=== PATIENT | male | born 1990 | race American Indian/Alaskan Native ===

== ENCOUNTER 2018-10-05 10:37 | Emergency (ER) | payer SELFPAY ==
[2018-10-05 10:42] VITALS: BP 138/95
[2018-10-05] MEDS ORDERED: CLEOCIN PO ONE (11:58)
[2018-10-05] MEDS ORDERED: IBUPROFEN PO ONE (11:59)
--- NOTE | 2018-10-05 12:14 | Emergency Department Report ---
ED ENT HPI - General Chief complaint: Dental/Oral Stated complaint: MOUTH SWOLLEN Time Seen by Provider: 10/05/18 11:09 Source: patient Mode of arrival: Ambulatory Limitations: No Limitations - History of Present Illness Initial comments: The patient is a (28 year-old male who presents to ED complaining of pain in the right side of his mouth x 3 days . Patient states that the pain started 3 days ago and has increased in severity over the last 2-3 days. The pain is exacerbated by eating and opening of the mouth. Patient states the pain is alleviated initially with pain medication but comes back. Patient states that it radiates towards ear. Patient describes a as a throbbing, pressure-like sensation. Patient states otherwise well and has no other complaints. Patient has had no fevers and no chills. No chest pain, no shortness of breath. No abdominal pain. No shortness of breath or recent trauma to the face. MD complaint: tooth pain - Related Data Previous Rx's Medication Instructions Recorded Last Taken Type Clindamycin [Clindamycin CAP] 300 mg PO TID #21 capsule 10/05/18 Unknown Rx Ibuprofen [Motrin 800 MG tab] 800 mg PO TID #30 tablet 10/05/18 Unknown Rx Allergies Allergy/AdvReac Type Severity Reaction Status Date / Time No Known Allergies Allergy Unverified 10/05/18 10:38 ED Dental HPI - General Chief complaint: Dental/Oral Stated complaint: MOUTH SWOLLEN Time Seen by Provider: 10/05/18 11:09 Source: patient Mode of arrival: Ambulatory Limitations: No Limitations - Related Data Previous Rx's Medication Instructions Recorded Last Taken Type Clindamycin [Clindamycin CAP] 300 mg PO TID #21 capsule 10/05/18 Unknown Rx Ibuprofen [Motrin 800 MG tab] 800 mg PO TID #30 tablet 10/05/18 Unknown Rx Allergies Allergy/AdvReac Type Severity Reaction Status Date / Time No Known Allergies Allergy Unverified 10/05/18 10:38 ED Review of Systems ROS: Stated complaint: MOUTH SWOLLEN Other details as noted in HPI Comment: All other systems reviewed and negative ED Past Medical Hx - Past Medical History Previous Medical History?: No - Surgical History Past Surgical History?: No - Social History Smoking Status: Never Smoker Substance Use Type: None - Medications Home Medications: Home Medications Medication Instructions Recorded Confirmed Last Taken Type Clindamycin [Clindamycin CAP] 300 mg PO TID #21 capsule 10/05/18 Unknown Rx Ibuprofen [Motrin 800 MG tab] 800 mg PO TID #30 tablet 10/05/18 Unknown Rx ED Physical Exam - General Limitations: No Limitations General appearance: alert, in no apparent distress - Head Head exam: Present: atraumatic, normocephalic - Eye Eye exam: Present: normal appearance - ENT ENT exam: Present: mucous membranes moist, TM's normal bilaterally, normal external ear exam - Expanded ENT Exam Expanded Teeth exam: Present: dental caries, gingival enlargement Throat exam: Positive: other (right sided lower gingival enlargement #30, multiple dental caries visualize). Negative: tonsillar erythema, tonsillomegaly, L peritonsillar mass - Neck Neck exam: Present: normal inspection, full ROM. Absent: lymphadenopathy - Respiratory Respiratory exam: Present: normal lung sounds bilaterally. Absent: respiratory distress - Cardiovascular Cardiovascular Exam: Present: regular rate, normal rhythm. Absent: systolic murmur, diastolic murmur, rubs, gallop - GI/Abdominal GI/Abdominal exam: Present: soft, normal bowel sounds - Rectal Rectal exam: Present: deferred - Extremities Exam Extremities exam: Present: normal inspection - Back Exam Back exam: Present: normal inspection - Neurological Exam Neurological exam: Present: alert, oriented X3 - Psychiatric Psychiatric exam: Present: normal affect, normal mood - Skin Skin exam: Present: warm, dry, intact, normal color. Absent: rash ED Course Vital Signs 10/05/18 10:40 Temperature 99.0 F Pulse Rate 87 Respiratory 16 Rate Blood Pressure 138/95 O2 Sat by Pulse 100 Oximetry ED Medical Decision Making - Medical Decision Making 28-year-old male who presents with right sided Facial pain secondary to odontogenic caries ED course: Patient received clindamycin and Motrin in the ED Odontogenic infection versus ear infection. Based upon history and physical examination, pain is a result of an infection of tooth number 30 and that the pain Pt feels on the right side of his face and towards the ear is referred pain from this infectious process. Pt has no evidence of acute impending airway compromise. At this point, patient will be discharged home on some antibiotics and pain trial, he will do well with an outpatient course of antibiotics. Follow up with the Dental Clinic as referred Vital signs are normal patient is in no acute distress. Pt had an effect uneventful ED stay Critical care attestation.: If time is entered above; I have spent that time in minutes in the direct care o f this critically ill patient, excluding procedure time. ED Disposition Clinical Impression: Pain due to dental caries Disposition: TO HOME OR SELFCARE Is pt being admited?: No Does the pt Need Aspirin: No Condition: Stable Instructions: Toothache (ED), Dental Caries (ED) Additional Instructions: Make sure to follow up with the dental as discussed. Take all your medications as you've been prescribed. If you have any worsening symptoms or develop new symptoms please return to ED immediately. Prescriptions: Clindamycin [Clindamycin CAP] 300 mg PO TID #21 capsule Ibuprofen [Motrin 800 MG tab] 800 mg PO TID #30 tablet Referrals: PENG ENRIQUEZ MD [Primary Care Provider] - 3-5 Days [facility] [Outside] - 3-5 Days [facility] [Outside] - 3-5 Days Forms: Work/School Release Form(ED) Time of Disposition: 12:29
== END 2018-10-05 13:06 | disposition home or self-care (01) ==
LOC: ED 10:37
DX: K02.9 Dental caries, unspecified (principal)
CPT/HCPCS: 99282

== ENCOUNTER 2019-04-17 11:04 | Emergency (ER) | payer SELFPAY ==
[2019-04-17 11:11] VITALS: BP 116/71
[2019-04-17] MEDS ORDERED: dexAMETHasone 20 MG/5 ML VIAL IM ONE (13:24)
--- NOTE | 2019-04-17 14:09 | Emergency Department Report ---
ED Lower Extremity HPI - General Chief Complaint: Extremity Problem,Nontraumatic Stated Complaint: TOE PAIN Time Seen by Provider: 04/17/19 13:04 Source: patient Mode of arrival: Ambulatory Limitations: No Limitations - History of Present Illness Initial Comments: This is a 28-year-old male nontoxic, well nourished in appearance, no acute signs of distress presents to the ED with c/o of intermittent left great toe pain and swelling. Patient stated has history of gout and symptoms are same. Patient denies any trauma. Patient denies any numbness, tingling, fever, chills, nausea, vomiting, chest pain, shortness of breath, headache, stiff neck. Patient denies decreased range of motion. Patient stated has decreased gait due to pain. Patient denies any allergies. -: days(s) Injury: Foot: Left Severity scale (0 -10): 8 Improves With: immobilization Worsens With: weight bearing, movement, palpation Associated Symptoms: swelling, able to partially bear weight, ambulatory. denies: snap/pop sensation, numbness, tingling, unable to bear weight - Related Data Previous Rx's Medication Instructions Recorded Last Taken Type Clindamycin [Clindamycin CAP] 300 mg PO TID #21 capsule 10/05/18 Unknown Rx Ibuprofen [Motrin 800 MG tab] 800 mg PO TID #30 tablet 10/05/18 Unknown Rx Naproxen 500 mg PO Q12H PRN 10 Days tablet 04/17/19 Unknown Rx Prednisone [predniSONE 10 mg 10 mg PO .TAPER #1 tab.ds.pk 04/17/19 Unknown Rx (6-Day Pack, 21 Tabs)] Allergies Allergy/AdvReac Type Severity Reaction Status Date / Time No Known Allergies Allergy Verified 04/17/19 11:05 ED Review of Systems ROS: Stated complaint: TOE PAIN Other details as noted in HPI Constitutional: denies: chills, fever Eyes: denies: eye pain, eye discharge, vision change ENT: denies: ear pain, throat pain Respiratory: denies: cough, shortness of breath, wheezing Cardiovascular: denies: chest pain, palpitations Endocrine: no symptoms reported Gastrointestinal: denies: abdominal pain, nausea, diarrhea Genitourinary: denies: urgency, dysuria Musculoskeletal: denies: back pain, joint swelling, arthralgia Skin: denies: rash, lesions Neurological: denies: headache, weakness, paresthesias Psychiatric: denies: anxiety, depression Hematological/Lymphatic: denies: easy bleeding, easy bruising ED Past Medical Hx - Past Medical History Previous Medical History?: Yes Additional medical history: gout - Surgical History Past Surgical History?: No - Social History Smoking Status: Never Smoker Substance Use Type: Marijuana - Medications Home Medications: Home Medications Medication Instructions Recorded Confirmed Last Taken Type Clindamycin [Clindamycin CAP] 300 mg PO TID #21 capsule 10/05/18 Unknown Rx Ibuprofen [Motrin 800 MG tab] 800 mg PO TID #30 tablet 10/05/18 Unknown Rx Naproxen 500 mg PO Q12H PRN 10 Days tablet 04/17/19 Unknown Rx Prednisone [predniSONE 10 mg 10 mg PO .TAPER #1 tab.ds.pk 04/17/19 Unknown Rx (6-Day Pack, 21 Tabs)] ED Physical Exam - General Limitations: No Limitations General appearance: alert, in no apparent distress - Head Head exam: Present: atraumatic, normocephalic - Extremities Exam Extremities exam: Present: normal inspection, full ROM, tenderness, normal capillary refill. Absent: joint swelling, calf tenderness - Expanded Lower Extremity Exam Left Hip exam: Present: normal inspection, full ROM. Absent: tenderness, swelling Upper Leg exam: Present: normal inspection, full ROM. Absent: tenderness, swelling Knee exam: Present: normal inspection, full ROM. Absent: tenderness, swelling Lower Leg exam: Present: normal inspection, full ROM. Absent: tenderness, swelling Ankle exam: Present: normal inspection, full ROM. Absent: tenderness, swelling Foot/Toe exam: Present: normal inspection, full ROM, tenderness, swelling. Absent: abrasion, laceration, ecchymosis, deformity, crepidus, dislocation, erythema, amputation, puncture wound, foreign body, calcaneal tenderness, tenderness at base of 5th metatarsal, nail avulsion, subungual hematoma Neuro vascular tendon exam: Present: no vascular compromise Gait: Positive: observed and limited by pain - Back Exam Back exam: Present: normal inspection, full ROM - Neurological Exam Neurological exam: Present: alert, oriented X3, normal gait - Psychiatric Psychiatric exam: Present: normal affect, normal mood - Skin Skin exam: Present: warm, dry, intact, normal color. Absent: rash ED Course Vital Signs 04/17/19 11:09 Temperature 98.5 F Pulse Rate 73 Respiratory 18 Rate Blood Pressure 116/71 O2 Sat by Pulse 98 Oximetry - Reevaluation(s) Reevaluation #1: 04/17/19 14:07 Patient is speaking in full sentences with no signs of distress noted. ED Lower Extremity MDM - Medical Decision Making This is a 28-year-old male that presents with gout flare. Patient is stable and was examined by me. Patient received a Decadron IM shot in the ER. Patient does have normal gait with some pain noted. No ecchymosis. No signs of cellulites present. Patient was instructed to RICE therapy. Patient be discharged with naproxen and prednisone Dosepak. At time of discharge, the patient does not seem toxic or ill in appearance. No acute signs of distress noted. Patient agrees to discharge treatment plan of care. No further questions noted by the patient. Critical care attestation.: If time is entered above; I have spent that time in minutes in the direct care of this critically ill patient, excluding procedure time. ED Disposition Clinical Impression: Gout flare Qualifiers: Gout site: toe Gout etiology: unspecified cause Laterality: left Qualified Code(s): M10.9 - Gout, unspecified Disposition: DC-01 TO HOME OR SELFCARE Is pt being admited?: No Does the pt Need Aspirin: No Condition: Stable Instructions: Acute Gouty Arthritis (ED) Additional Instructions: Follow-up with a primary care doctor in 3-5 days or if symptoms worsen and continue return to emergency room as soon as possible. Prescriptions: Naproxen 500 mg PO Q12H PRN 10 Days tablet PRN Reason: Pain , Severe (7-10) Prednisone [predniSONE 10 mg (6-Day Pack, 21 Tabs)] 10 mg PO .TAPER #1 tab.ds.pk Referrals: PRIMARY CAREMD [Referring] - 3-5 Days JOSE WATERMAN MD [Staff Physician] - 3-5 Days [facility] [Outside] - 3-5 Days Forms: Work/School Release Form(ED)
== END 2019-04-17 14:27 | disposition home or self-care (01) ==
LOC: ED 11:04
DX: M10.9 Gout, unspecified (principal); F12.10 Cannabis abuse, uncomplicated
CPT/HCPCS: 96372; 99282; J1100